=== PATIENT | male | born 1960 | race Caucasian/White ===

== ENCOUNTER 2021-06-22 20:15 | Emergency (ER) | payer OTHER ==
[~2021-06-22] VITALS: Ht 190.5 cm; Wt 127.0 kg
[2021-06-22 20:51] VITALS: BP_SYST 157
[2021-06-22] MEDS ORDERED: TETRACAINE HCL/PF 0.5% OPHTHALMIC DROPS 4 ML OP ONE (21:30)
[2021-06-22] MEDS ORDERED: FLUORESCEIN SODIUM 1 MG OPHTHALMIC STRIP OP ONE (21:30)
[2021-06-22 23:07] VITALS: BP_SYST 152
== END 2021-06-22 23:07 | disposition home or self-care (01) ==
LOC: SED 20:15
DX: H11.32 Conjunctival hemorrhage, left eye (principal); I10 Essential (primary) hypertension
CPT/HCPCS: 99282